=== PATIENT | female | born 1960 | race Caucasian/White ===

== ENCOUNTER 2017-11-02 13:10 | Emergency (ER) | payer MEDICARE, MEDICAID ==
[2017-11-02 13:11] VITALS: BMI 37.8
[2017-11-02 13:22] VITALS: BP 132/71; PULSE 60; RESP 18; TEMP 98.5; O2SAT 99
--- NOTE | 2017-11-02 13:33 | ED PDOC ---
HPI: General Adult Time Seen by Provider: 11/02/17 13:24 Chief Complaint (Nursing): ENT Problem Chief Complaint (Provider): Left Ear Pain History Per: Patient History/Exam Limitations: no limitations Onset/Duration Of Symptoms: Days (x3) Current Symptoms Are (Timing): Still Present Additional Complaint(s): 57 year old female presents to the ED for evaluation of left ear infection. Patient was seen yesterday at [facility] and was started on Cortisporin eardrops but presents to ED today stating she still has severe pain to left ear. Patient has been taking Tylenol and ibuprofen with minimal relief. PMD: Dr. Trimble Past Medical History Reviewed: Historical Data, Nursing Documentation, Vital Signs Vital Signs: Last Vital Signs Temp 98.5 F 11/02/17 13:20 Pulse 60 11/02/17 13:20 Resp 18 11/02/17 13:20 BP 132/71 11/02/17 13:20 Pulse Ox 99 11/02/17 14:00 - Medical History PMH: No Chronic Diseases - Surgical History Surgical History: (x1) Other surgeries: pelvic fracture repair - Family History Family History: States: No Known Family Hx - Living Arrangements Living Arrangements: With Family - Social History Current smoker - smoking cessation education provided: Yes Alcohol: None Drugs: Denies - Home Medications Home Medications: Ambulatory Orders Medication Instructions Recorded Iron 65 mg PO DAILY 02/13/15 Multivitamin 1 tab PO DAILY 02/13/15 Ukabb-[id number] Ethyl Esters [OMEGA 3] 500 mg PO DAILY 02/13/15 Vit B Complex [B-Complex] 1 tab PO DAILY 02/13/15 Ibuprofen 600 mg PO DAILY PRN 02/19/15 Amoxicillin/Clavulanate [Augmentin 1 tab PO BID #14 tab 11/02/17 875 MG-125 MG] traMADol [Ultram] 50 mg PO Q6H PRN #12 tab 11/02/17 - Allergies Allergies/Adverse Reactions: Allergies Allergy/AdvReac Type Severity Reaction Status Date / Time No Known Allergies Allergy Verified 11/02/17 13:20 Review of Systems ROS Statement: Except As Marked, All Systems Reviewed And Found Negative Constitutional: Negative for: Fever, Chills ENT: Positive for: Ear Pain (left) Neurological: Negative for: Headache, Dizziness Physical Exam - Reviewed Nursing Documentation Reviewed: Yes Vital Signs Reviewed: Yes - Physical Exam Appears: Positive for: Non-toxic, Uncomfortable Head Exam: Positive for: ATRAUMATIC, NORMAL INSPECTION, NORMOCEPHALIC Skin: Positive for: Normal Color. Negative for: Rash Eye Exam: Positive for: Normal appearance ENT: Positive for: Other (Left ear canal with moderate edema, erythema, and bulging tympanic membrane consistent with otitis media and externa, no perforation noted) Cardiovascular/Chest: Positive for: Regular Rate, Rhythm Respiratory: Positive for: Normal Breath Sounds. Negative for: Wheezing, Respiratory Distress Neurologic/Psych: Positive for: Alert, Oriented - ECG O2 Sat by Pulse Oximetry: 99 (RA) Pulse Ox Interpretation: Normal Medical Decision Making Medical Decision Making: Time: 1330 Impression: 57 year old female with otitis media / otitis externa Initial Plan: --Toradol 30mg IM --Ultram 50mg PO Patient reports improvement to pain after medications given in ED. Prescriptions were provided for Augmentin and tramadol. Patient was advised to continue with ibuprofen and eardrops. She was referred to ear, nose and throat specialist for follow-up if symptoms persist. ~ Scribe Attestation: Documented by Cassy Valdovinos, acting as a scribe for Hannah Jones PA-C. Provider Scribe Attestation: All medical record entries made by the Scribe were at my direction and personally dictated by me. I have reviewed the chart and agree that the record accurately reflects my personal performance of the history, physical exam, medical decision making, and the department course for this patient. I have also personally directed, reviewed, and agree with the discharge instructions and disposition. Disposition - Clinical Impression Clinical Impression: Otitis media, Otitis externa - Patient ED Disposition Is Patient to be Admitted: No Counseled Patient/Family Regarding: Diagnosis, Need For Followup, Rx Given - Disposition Referrals: Maik Navarro MD [Staff Provider] - Disposition: Routine/Home Disposition Time: 13:55 Condition: IMPROVED Additional Instructions: Continue with eardrops and with ibuprofen. Take new prescriptions as directed. Follow-up with ear, nose and throat specialist for any persistent symptoms. Prescriptions: Amoxicillin/Clavulanate [Augmentin 875 MG-125 MG] 1 tab PO BID #14 tab traMADol [Ultram] 50 mg PO Q6H PRN #12 tab PRN Reason: Pain, Moderate (4-7) Instructions: Ear Infections (Otitis Media), Outer Ear Infection Forms: [facility] (Swiss)
== END 2017-11-02 14:15 | disposition home or self-care (01) ==
LOC: H.ER 13:10
DX: H66.92 Otitis media, unspecified, left ear (principal); H60.92 Unspecified otitis externa, left ear; F17.200 Nicotine dependence, unspecified, uncomplicated
CPT/HCPCS: 96372; 99282; J1885